=== PATIENT | female | born 1955 | race Caucasian/White ===

== ENCOUNTER 2017-03-09 11:04 | Emergency (ER) | payer MEDICARE, MEDICAID ==
[~2017-03-09] VITALS: Ht 170.2 cm; Wt 88.9 kg
[2017-03-09] MEDS ORDERED: COZAAR 25 MG TA25 M1 PO (11:10)
[2017-03-09] MEDS ORDERED: PROPRANOLOL 1010 MG PO (11:10)
[2017-03-09] MEDS ORDERED: VISTARIL 25 MG25 M1 PO (11:10)
[2017-03-09] MEDS ORDERED: NORCO 10-325 T1 EACH PO (11:11)
[2017-03-09 11:25] LABS: ABSOLUTE LYMPHOCYTES 1.3 thou/uL (0.8-5.3); ABSOLUTE MONOCYTES 0.5 thou/uL (0.0-1.2); ABSOLUTE NEUTROPHILS 2.6 thou/uL (1.6-8.1); BASOPHILS 0.8 %; HEMATOCRIT 43.3 % (37.0-47.0); HEMOGLOBIN 14.7 gm/dL (12.0-15.0); LYMPHOCYTES 28.7 %; MCH 31.9 pg (26.0-34.0); MCHC 33.9 g/dL (28.0-37.0); MCV 94.1 fL (80.0-100.0); MONOCYTES 12.2 %; MPV 7.9 fl. (7.2-11.1); NUCLEATED RBCS 0 /100WBC; PLATELET COUNT* 153 thou/uL (150-400); POLYS 57.3 %; RDW-CV 13.7 % (10.5-14.5); WBC 4.5 thou/uL (4.0-11.0)
[2017-03-09 11:37] LABS: APTT 26.8 Seconds (25.0-31.3); INR 1.1; PROTIME 10.3 Seconds (9.20-11.50)
[2017-03-09 11:45] LABS: ANION GAP 10 mmol/L (7-16); BUN 12 mg/dL (7-18); CALCIUM 9.1 mg/dL (8.5-10.1); CHLORIDE 103 mmol/L (98-107); CO2 28 mmol/L (21-32); CREATININE 0.8 mg/dL (0.6-1.3); GLUCOSE 94 mg/dL (70-99); POTASSIUM 3.5 mmol/L (3.5-5.1); SODIUM 141 mmol/L (136-145)
[2017-03-09 11:53] LABS: ALBUMIN 3.9 g/dL (3.4-5.0); ALKALINE PHOSPHATASE 118 U/L (46-116); CK-MB MASS 2.6 ng/mL (<0.5-3.6); LIPASE 69 U/L (73-393); MAGNESIUM 1.7 mg/dL (1.8-2.4); NT-PRO BRAIN NAT PEPTIDE 154 pg/mL (<300); SGOT 27 U/L (15-37); SGPT 30 U/L (30-65); TOTAL BILIRUBIN 0.5 mg/dL (<0.1-1.0); TOTAL PROTEIN 7.9 g/dL (6.4-8.2); TROPONIN-I LEVEL <0.06 ng/mL (<0.06)
[2017-03-09 13:29] VITALS: BP 184/98
--- NOTE | 2017-03-09 15:11 | EKG ---
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
[2017-03-09] MEDS ORDERED: TAPAZOLE10 MG PO (18:35)
[2017-03-09] MEDS ORDERED: TRAZODONE HCL100 MG PO (18:38)
--- NOTE | 2017-03-10 12:11 | EKG ---
[place] [address] ELECTROCARDIOGRAM REPORT Name: CHEPE MANRIQUE Poornima Room: 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 : 1955 Requested By: Horacio Soto Order Number: [id number] MD: Pollo Servin Measurements Intervals [place] Rate: 61 P: 0 MS: 29 QRS: 37 QRSD: 77 T: 34 QT: 413 QTc: 416 Interpretive Statements nsr RSR' in V1 or V2, probably normal variant Artifact in lead(s) II,aVR,aVF,V1,V3,V4,V5 Compared to ECG 03/05/2017 14:10:48 Wandering atrial pacemaker now present RSR' in V1 or V2 now present Sinus rhythm no longer present Electronically Signed On 03-10-2017 12:11:12 GRINDING WHEEL FACER by Pollo Servin [email or web address] <ELECTRONICALLY SIGNED> By: Pollo Servin MD, FACC 03/10/17 1211 1630 1630 Pollo Servin MD, [facility] /EPI
== END 2017-03-09 13:30 | disposition home or self-care (01) ==
LOC: M.ERS 11:04
PROVIDERS: Family Medicine
DX: R07.9 Chest pain, unspecified (principal); Z86.73 Personal history of transient ischemic attack (TIA), and cerebral infarction without residual deficits

== ENCOUNTER 2017-03-09 16:22 | Inpatient (IN) | payer MEDICARE, MEDICAID ==
[~2017-03-09] VITALS: Ht 170.2 cm; Wt 93.0 kg
--- NOTE | ~2017-03-09 | EKG ---
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
[~2017-03-09 16:22] MED LIST: COZAAR 25 MG TA25 M1 PO; NORCO 10-325 T1 EACH PO; PROPRANOLOL 1010 MG PO; VISTARIL 25 MG25 M1 PO
[2017-03-09 16:25] VITALS: BP 145/76
[2017-03-09 16:52] LABS: ABSOLUTE NEUTROPHILS 4.8 thou/uL (1.6-8.1); BASOPHILS 0.6 %; HEMOGLOBIN 14.1 gm/dL (12.0-15.0)
[2017-03-09 16:57] LABS: ABSOLUTE LYMPHOCYTES 1.9 thou/uL (0.8-5.3); ABSOLUTE MONOCYTES 0.7 thou/uL (0.0-1.2); EOSINOPHILS 0.5 %; HEMATOCRIT 42.2 % (37.0-47.0); LYMPHOCYTES 25.6 %; MCH 31.9 pg (26.0-34.0); MCHC 33.5 g/dL (28.0-37.0); MCV 95.3 fL (80.0-100.0); MONOCYTES 9.1 %; MPV 8.1 fl. (7.2-11.1); NUCLEATED RBCS 0 /100WBC; PLATELET COUNT* 100 thou/uL (150-400); POLYS 64.2 %; RBC 4.43 mil/uL (4.20-5.00); RDW-CV 13.8 % (10.5-14.5); WBC 7.4 thou/uL (4.0-11.0)
[2017-03-09 17:02] LABS: APTT 20.1 Seconds (25.0-31.3); INR 1.1; PROTIME 10.6 Seconds (9.20-11.50)
[2017-03-09 17:07] LABS: ANION GAP 9 mmol/L (7-16); BUN 16 mg/dL (7-18); CALCIUM 8.9 mg/dL (8.5-10.1); CHLORIDE 105 mmol/L (98-107); CO2 28 mmol/L (21-32); CREATININE 0.9 mg/dL (0.6-1.3); GLUCOSE 114 mg/dL (70-99); POTASSIUM 3.2 mmol/L (3.5-5.1); SODIUM 142 mmol/L (136-145)
[2017-03-09 17:14] LABS: ALBUMIN 3.6 g/dL (3.4-5.0); ALKALINE PHOSPHATASE 107 U/L (46-116); LIPASE 76 U/L (73-393); SGOT 27 U/L (15-37); SGPT 28 U/L (30-65); TOTAL BILIRUBIN 0.4 mg/dL (<0.1-1.0); TOTAL PROTEIN 6.9 g/dL (6.4-8.2); TROPONIN-I LEVEL <0.06 ng/mL (<0.06)
--- NOTE | 2017-03-09 17:30 | EKG ---
[place] [address] ELECTROCARDIOGRAM REPORT Name: HOMERO MANRIQUEMIDerick Noguera Room: [facility]#: [id number] Admission: 03/09/17 Attend Phys: Discharge: Date of : 59 Report #: [id number] THIS REPORT FOR: //name// 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 03/09/17 1730 1308 1308 Pollo Servin MD, FAC /EPI
[2017-03-09 17:50] LABS: PLATELET ESTIMATE DECREASED
[2017-03-09 18:08] VITALS: BP 110/74
--- NOTE | 2017-03-09 18:11 | 2DMMODE ---
[place] [address] 2 D/M-MODE ECHOCARDIOGRAM Name: CHEPE MANRIQUE Room: [address] IN [facility]#: [id number] Admission: 03/09/17 Attend Phys: Mike Seth Discharge: Date of : 59 Date of Service: 03/09/17 1810 Report #: [id number] THIS REPORT FOR: //name// APPROVED REPORT Study performed: 03/09/2017 17:27:33 EXAM: Comprehensive 2D, Doppler, and color-flow Echocardiogram Patient Location: In-Patient Room #: er Status: routine BSA: 2.00 HR: 61 bpm BP: 145/76 mmHg Rhythm: NSR Other Information Study Quality: Technically Limited Indications Syncope 2D Dimensions LVEF(%): 72.33 (>50%) IVSd: 11.81 (7-11mm) LVOT Diam: 20.67 (18-24mm) LVDd: 41.75 mm PWd: 10.16 (7-11mm) Ascending Ao: 30.72 (22-36mm) LVDs: 24.60 (25-40mm) Aortic Root: 29.50 mm Billy's LVEF: 72.33 % Volumes Left Atrial Volume (Systole) LA ESV Index: 23.10 mL/m2 Aortic Valve AoV Peak Darrell.: 1.32 m/s AO Peak Gr.: 6.97 mmHg LVOT Max P.30 mmHg AO Mean Gr.: 3.15 mmHg LVOT Mean P.64 mmHg LVOT Max V: 1.15 m/s AO V2 VTI: 25.25 cm LVOT Mean V: 0.75 m/s YOCASTA (VTI): 3.30 cm2 LVOT V1 VTI: 24.84 cm Mitral Valve E/A Ratio: 0.89 [place] [address] 2 D/M-MODE ECHOCARDIOGRAM Name: SEGUNTracyCHEPE Poornima Room: [address] IN ..#: [id number] Admission: 03/09/17 Attend Phys: Mike Seth Discharge: Date of : 59 Date of Service: 03/09/17 1810 Report #: [id number] MV Decel. Time: 244.49 ms MV E Max Darrell.: 0.80 m/s MV PHT: 70.90 ms MVA (PHT): 3.10 cm2 TDI E/Lateral E': 8.00 E/Medial E': 8.00 Medial E' Darrell.: 0.10 m/s Lateral E' Darrell.: 0.10 m/s Pulmonary Valve PV Peak Darrell.: 0.97 m/s PV Peak Gr.: 3.78 mmHg Tricuspid Valve TR Peak Gr.: 22.26 mmHg RVSP: 27.00 mmHg Left Ventricle The left ventricle is normal size. There is normal LV segmental wall motion. There is normal left ventricular wall thickness. Left ventricular systolic function is normal. The left ventricular ejection fraction is within the normal range. LVEF is 60-65%. The left ventricular diastolic function is normal. Right Ventricle The right ventricle is normal size. The right ventricular systolic function is normal. Atria The left atrium size is normal. The right atrium size is normal. Aortic Valve The aortic valve is normal in structure. No aortic regurgitation is present. There is no aortic valvular stenosis. Mitral Valve The mitral valve is normal in structure. Trace mitral regurgitation. No evidence of mitral valve stenosis. Tricuspid Valve The tricuspid valve is normal in structure. Trace tricuspid regurgitation. The RVSP is ___27____ mmHg. Pulmonic Valve Pulmonic valve is not well visualized. There is no pulmonic [place] [address] 2 D/M-MODE ECHOCARDIOGRAM Name: CHEPE MANRIQUE Room: [address] M.R.#: [id number] Admission: 03/09/17 Attend Phys: Mike Seth Discharge: Date of : 59 Date of Service: 03/09/17 1810 Report #: [id number] Great Vessels The aortic root is normal in size. IVC is normal in size and collapses with >50% inspiration Pericardium There is no pericardial effusion. <Conclusion> Left ventricular systolic function is normal. The left ventricular ejection fraction is within the normal range. <ELECTRONICALLY SIGNED> By: Christian Hensley MD, FACC 03/09/171809 09 09 Christian Hensley MD, FACC /INF
[2017-03-09 18:12] VITALS: BP 145/76
[2017-03-09] MEDS ORDERED: TAPAZOLE10 MG PO (18:35)
[2017-03-09] MEDS ORDERED: TRAZODONE HCL100 MG PO (18:38)
[2017-03-09 19:50] VITALS: BP 109/43
[2017-03-09 21:56] LABS: URINE BLOOD TRACE (Negative); URINE CLARITY CLEAR; URINE COLOR YELLOW; URINE GLUCOSE-RANDOM NEGATIVE (Negative); URINE KETONES TRACE (Negative); URINE LEUKOCYTES-REFLEX NEGATIVE (Negative); URINE NITRITE-REFLEX NEGATIVE (Negative); URINE PROTEIN 2+ (Negative); URINE SPECIFIC GRAVITY >= 1.030 (1.005-1.030); URINE UROBILINOGEN 0.2 E.U./dl (0.2-1.0)
[2017-03-09 22:04] LABS: URINE BILIRUBIN 1+ (Negative)
[2017-03-09 22:05] LABS: ICTOTEST (BILI CONFIRMATORY) Negative (Negative)
[2017-03-09 22:38] LABS: MUCUS 0-3 Light strn/LPF (None Seen); SQUAMOUS 4-10 Moderate /LPF (0-3)
[2017-03-09 22:39] LABS: HYALINE CASTS 0-3 Few /LPF (None Seen)
[2017-03-09 22:40] LABS: BACTERIA-REFLEX 1-9 Few /HPF (None Seen); CRYSTALS None Seen /LPF (None Seen); URINE RBC 0-2 Rare /HPF (0-2); URINE WBC-REFLEX 6-15 Few /HPF (0-5)
[2017-03-10] VITALS (10 sets, daily range): BP systolic 121–188; BP diastolic 67–98
[2017-03-10 06:30] LABS: POTASSIUM 4.7 mmol/L (3.5-5.1)
--- NOTE | 2017-03-10 12:15 | EKG ---
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29 : 1955 Requested By: Horacio Soto Order Number: [id number] Reading MD: Pollo Servin Measurements Intervals [place] Rate: 70 P: 25 MD: 144 QRS: 44 QRSD: 87 T: 33 QT: 410 QTc: 443 Interpretive Statements Sinus rhythm RSR' in V1 or V2, probably normal variant Compared to ECG 03/09/2017 13:08:00 RSR' in V1 or V2 now present Electronically Signed On 03-10-2017 12:15:04 RECLAIMER by Pollo Servin [email or web address] <ELECTRONICALLY SIGNED> By: Pollo Servin MD, [facility] 03/10/17 1215 0911 0911 Pollo Servin MD, [facility] /EPI
[2017-03-11] VITALS (8 sets, daily range): BP systolic 137–205; BP diastolic 72–108
[2017-03-11] MEDS ORDERED: TRIAMTERENE-HC1 EAC1 PO (12:33)
[2017-03-11] MEDS ORDERED: COZAAR 50 MG TA50 M1 PO (12:33)
[2017-03-11] MEDS ORDERED: NORVASC2.5 MG PO (12:34)
[2017-03-11] MEDS ORDERED: MELATONIN5 M1 PO (15:44)
[2017-03-11] MEDS ORDERED: BENADRYL25 MG PO (15:46)
[2017-03-11] MEDS ORDERED: TYLENOL325 MG PO (15:48)
[2017-03-11] MEDS ORDERED: LEVAQUIN 500 M500 M2 PO ×2 (15:50→16:06)
== END 2017-03-11 16:20 | disposition home or self-care (01) | DRG 315 ==
LOC: M.ERS 16:22 → M.TBA-ER 17:27 → M.2W 18:06
PROVIDERS: Family Medicine; ADMIT Internal Medicine
DX: I95.9 Hypotension, unspecified (principal); N39.0 Urinary tract infection, site not specified; E87.6 Hypokalemia; I12.9 Hypertensive chronic kidney disease with stage 1 through stage 4 chronic kidney disease, or unspecified chronic kidney disease; N18.3 Chronic kidney disease, stage 3 (moderate); I10 Essential (primary) hypertension; Z79.899 Other long term (current) drug therapy; Z86.73 Personal history of transient ischemic attack (TIA), and cerebral infarction without residual deficits; I25.2 Old myocardial infarction

== ENCOUNTER → 2018-02-14 | Outpatient (CLI) | payer OTHER, MEDICAID ==
[~2018-02-14] MED LIST changes: +BENADRYL25 MG PO; +COZAAR 50 MG TA50 M1 PO; +LEVAQUIN 500 M500 M2 PO; +MELATONIN5 M1 PO; +NORVASC2.5 MG PO; +TAPAZOLE10 MG PO; +TRAZODONE HCL100 MG PO; +TRIAMTERENE-HC1 EAC1 PO; +TYLENOL325 MG PO
== END ==
LOC: M.ULTRA 10:16
DX: E01.0 Iodine-deficiency related diffuse (endemic) goiter (principal); R13.12 Dysphagia, oropharyngeal phase; E05.90 Thyrotoxicosis, unspecified without thyrotoxic crisis or storm